=== PATIENT | male | born 1965 | race Caucasian/White ===

== ENCOUNTER 2023-08-17 12:53 | Outpatient (CLI) | payer MEDICARE | END 2023-08-17 12:54 | disposition home or self-care (01) | LOC: BICCT 12:53 | PROVIDERS: ATTEND Family Medicine | DX: Z12.2 Encounter for screening for malignant neoplasm of respiratory organs (principal); J44.9 Chronic obstructive pulmonary disease, unspecified; Z87.891 Personal history of nicotine dependence | CPT/HCPCS: 71271 ==